=== PATIENT | female | born 2000 | race Caucasian/White ===

== ENCOUNTER → 2022-09-16 | Outpatient (CLI) | payer OTHER | LOC: M CARPUL 13:13 | PROVIDERS: ATTEND Internal Medicine Pulmonary Disease | DX: R06.02 Shortness of breath (principal) ==

== ENCOUNTER 2023-09-04 09:47 | Emergency (ER) | payer OTHER ==
[~2023-09-04] VITALS: Ht 154.9 cm; Wt 118.2 kg
[2023-09-04] MEDS ORDERED: ALBU8.5H (09:57)
[2023-09-04] MEDS ORDERED: SYMB16INH (09:57)
[2023-09-04 12:05] LABS: BASO # 0.1 10^3/uL (0.0-0.2); BASO % 0.5 % (0.0-1.0); EOS # 0.3 10^3/uL (0.0-0.5); EOS % 1.9 % (0.0-3.0); HEMATOCRIT 40.9 % (36.0-47.0); HEMOGLOBIN 14.3 g/dl (12.0-15.5); LYMPH # 2.5 10^3/uL (1.5-5.0); LYMPH % 19.3 % (24.0-44.0); MEAN CORPUSCULAR HEMOGLOBIN 34.1 pg (27.0-33.0); MEAN CORPUSCULAR VOLUME 97.6 fl (80.0-96.0); MONO # 0.6 10^3/uL (0.0-0.8); MONO % 4.7 % (2.0-8.0); NEUTROPHILS # 9.5 10^3/uL (1.5-8.5); NEUTROPHILS % 73.1 % (36.0-66.0); PLATELET COUNT, AUTOMATED 378 10^3/uL (150-450); RED BLOOD COUNT 4.19 10^6/uL (4.00-5.40); WHITE BLOOD COUNT 12.9 10^3/uL (4.0-10.0)
[2023-09-04 12:13] VITALS: TEMP 98.2
[2023-09-04] MEDS: IPRATROPIUM 0.5MG/ALBUTEROL 2.5MG INH SOL UD 3ML (DUONEB) NEB ONE (12:21)
[2023-09-04 12:33] LABS: BLOOD UREA NITROGEN 13 MG/DL (9-23); CALCIUM LEVEL 8.7 MG/DL (8.5-10.1); CARBON DIOXIDE LEVEL 27 MMOL/L (20-31); CHLORIDE LEVEL 107 MMOL/L (98-107); GLOMERULAR FILTRATION RATE > 60.0 (>60); GLUCOSE, FASTING 82 MG/DL (60-100); POTASSIUM SERUM 4.4 MMOL/L (3.5-5.1); SODIUM LEVEL 139 MMOL/L (136-145)
[2023-09-04] MEDS ORDERED: ISOVUE-370 76% 100ML VIAL As Ordered ONE (12:37)
[2023-09-04 13:35] VITALS: BP 128/89; O2SAT 99
== END 2023-09-04 13:37 | disposition home or self-care (01) ==
LOC: M ED 11:25
DX: R06.00 Dyspnea, unspecified (principal); R91.8 Other nonspecific abnormal finding of lung field; F17.200 Nicotine dependence, unspecified, uncomplicated; Z88.0 Allergy status to penicillin; Z88.1 Allergy status to other antibiotic agents
CPT/HCPCS: 71046; 71275; 80048; 83880; 84702; 85025; 87486; 87581; 87633; 87798; 94640; 99284; Q9967

== ENCOUNTER 2023-10-11 00:57 | Emergency (ER) | payer OTHER ==
[~2023-10-11] VITALS: Ht 147.3 cm; Wt 117.8 kg
[~2023-10-11 00:57] MED LIST: ALBU8.5H; SYMB16INH
[2023-10-11 01:06] VITALS: TEMP 98.1
[2023-10-11 04:56] LABS: BASO # 0.1 10^3/uL (0.0-0.2); BASO % 0.4 % (0.0-1.0); EOS # 0.4 10^3/uL (0.0-0.5); EOS % 2.6 % (0.0-3.0); HEMATOCRIT 40.6 % (36.0-47.0); HEMOGLOBIN 14.1 g/dl (12.0-15.5); LYMPH # 3.5 10^3/uL (1.5-5.0); LYMPH % 24.4 % (24.0-44.0); MEAN CORPUSCULAR HEMOGLOBIN 33.5 pg (27.0-33.0); MEAN CORPUSCULAR HGB CONC 34.7 g/dl (32.0-36.5); MEAN CORPUSCULAR VOLUME 96.4 fl (80.0-96.0); MONO # 0.6 10^3/uL (0.0-0.8); MONO % 4.1 % (2.0-8.0); NEUTROPHILS # 9.7 10^3/uL (1.5-8.5); PLATELET COUNT, AUTOMATED 409 10^3/uL (150-450); RED BLOOD COUNT 4.21 10^6/uL (4.00-5.40); WHITE BLOOD COUNT 14.3 10^3/uL (4.0-10.0)
[2023-10-11 05:24] LABS: ALBUMIN 3.5 G/DL (3.2-5.2); ALKALINE PHOSPHATASE 90 U/L (46-116); ALT/SGPT 18 U/L (7.0-40); AST/SGOT 15 U/L (<34); BILIRUBIN,DIRECT 0.2 MG/DL (<0.4); BILIRUBIN,TOTAL 0.6 MG/DL (0.3-1.2); BLOOD UREA NITROGEN 12 MG/DL (9-23); CALCIUM LEVEL 8.6 MG/DL (8.5-10.1); CARBON DIOXIDE LEVEL 26 MMOL/L (20-31); CHLORIDE LEVEL 104 MMOL/L (98-107); GLOMERULAR FILTRATION RATE > 60.0 (>60); GLUCOSE, FASTING 85 MG/DL (60-100); POTASSIUM SERUM 4.1 MMOL/L (3.5-5.1); SODIUM LEVEL 137 MMOL/L (136-145); TOTAL PROTEIN 6.6 G/DL (5.7-8.2)
[2023-10-11] MEDS: dexAMETHasone 20MG/5ML VIAL IV ONE (06:28)
[2023-10-11 06:50] VITALS: BP 137/66; O2SAT 98
== END 2023-10-11 07:05 | disposition home or self-care (01) ==
LOC: M ED 00:57 → EDBD 00:57 → M ED 07:05
DX: J45.909 Unspecified asthma, uncomplicated (principal); F17.200 Nicotine dependence, unspecified, uncomplicated; Z88.1 Allergy status to other antibiotic agents
CPT/HCPCS: 71046; 80048; 80076; 85025; 93005; 96374; 99284; J1100

== ENCOUNTER 2023-10-18 05:44 | Emergency (ER) | payer OTHER ==
[~2023-10-18] VITALS: Ht 147.3 cm; Wt 116.7 kg
[2023-10-18 08:50] LABS: BASO # 0.1 10^3/uL (0.0-0.2); BASO % 0.5 % (0.0-1.0); EOS # 0.3 10^3/uL (0.0-0.5); HEMATOCRIT 39.2 % (36.0-47.0); HEMOGLOBIN 13.6 g/dl (12.0-15.5); LYMPH # 3.5 10^3/uL (1.5-5.0); LYMPH % 21.6 % (24.0-44.0); MEAN CORPUSCULAR HEMOGLOBIN 33.2 pg (27.0-33.0); MEAN CORPUSCULAR HGB CONC 34.7 g/dl (32.0-36.5); MEAN CORPUSCULAR VOLUME 95.6 fl (80.0-96.0); MONO # 0.8 10^3/uL (0.0-0.8); MONO % 5.1 % (2.0-8.0); NEUTROPHILS # 11.4 10^3/uL (1.5-8.5); NEUTROPHILS % 70.2 % (36.0-66.0); PLATELET COUNT, AUTOMATED 359 10^3/uL (150-450); WHITE BLOOD COUNT 16.2 10^3/uL (4.0-10.0)
[2023-10-18 09:26] LABS: BLOOD UREA NITROGEN 8 MG/DL (9-23); CALCIUM LEVEL 8.7 MG/DL (8.5-10.1); CARBON DIOXIDE LEVEL 25 MMOL/L (20-31); CHLORIDE LEVEL 107 MMOL/L (98-107); CREATININE FOR GFR 0.66 MG/DL (0.55-1.30); GLOMERULAR FILTRATION RATE > 60.0 (>60); GLUCOSE, FASTING 80 MG/DL (60-100); POTASSIUM SERUM 3.6 MMOL/L (3.5-5.1); SODIUM LEVEL 139 MMOL/L (136-145)
[2023-10-18] MEDS ORDERED: ISOVUE-370 76% 100ML VIAL As Ordered ONE (10:33)
[2023-10-18 10:54] VITALS: BP 137/85; TEMP 99; O2SAT 100
[2023-10-18] MEDS ORDERED: MACR100C43 PO (11:27)
[2023-10-18] MEDS: NITROFURANTOIN (MACROBID) 100 MG CAP PO ONE (11:35)
== END 2023-10-18 11:41 | disposition home or self-care (01) ==
LOC: M ED 05:44 → EDBD 05:44 → M ED 11:41
DX: R06.02 Shortness of breath (principal); N39.0 Urinary tract infection, site not specified; D72.829 Elevated white blood cell count, unspecified; F17.210 Nicotine dependence, cigarettes, uncomplicated; Z88.1 Allergy status to other antibiotic agents; Z79.51 Long term (current) use of inhaled steroids; Z79.899 Other long term (current) drug therapy
CPT/HCPCS: 36415; 71046; 74177; 80048; 81001; 84702; 85025; 85379; 87086; 87426; 99284; Q9967

== ENCOUNTER 2023-10-24 23:27 | Emergency (ER) | payer OTHER ==
[~2023-10-24] VITALS: Ht 147.3 cm; Wt 124.0 kg
[~2023-10-24 23:27] MED LIST changes: +MACR100C43 PO
[2023-10-24 23:35] VITALS: BP 126/91; TEMP 97.2; O2SAT 100
[2023-10-25] MEDS: IBUPROFEN 600MG TAB PO ONE (01:13)
[2023-10-25] MEDS ORDERED: IBUP-1022 PO (01:16)
== END 2023-10-25 01:20 | disposition home or self-care (01) ==
LOC: M ED 23:27 → EDBD 23:27 → M ED 10-25 01:20
DX: S93.402A Sprain of unspecified ligament of left ankle, initial encounter (principal); X50.0XXA Overexertion from strenuous movement or load, initial encounter; Y92.009 Unspecified place in unspecified non-institutional (private) residence as the place of occurrence of the external cause; Y93.01 Activity, walking, marching and hiking; Y99.8 Other external cause status; J45.909 Unspecified asthma, uncomplicated; Z88.1 Allergy status to other antibiotic agents; Z88.0 Allergy status to penicillin; Z79.899 Other long term (current) drug therapy

== ENCOUNTER 2023-12-14 19:11 | Emergency (ER) | payer OTHER ==
[~2023-12-14] VITALS: Ht 144.8 cm; Wt 117.5 kg
[~2023-12-14 19:11] MED LIST changes: +IBUP-1022 PO
[2023-12-14 19:12] VITALS: BP 152/97; TEMP 98.2; O2SAT 98
== END 2023-12-14 23:12 | disposition left against medical advice (07) ==
LOC: M ED 19:11
DX: Z53.21 Procedure and treatment not carried out due to patient leaving prior to being seen by health care provider (principal)

== ENCOUNTER 2024-01-14 23:13 | Emergency (ER) | payer OTHER ==
[~2024-01-14] VITALS: Ht 147.3 cm; Wt 118.7 kg
[2024-01-14 23:14] VITALS: O2SAT 98
[2024-01-15 00:03] LABS: HCG, SERUM QUALITATIVE NEGATIVE (NEGATIVE)
[2024-01-15 00:10] LABS: HCG, SERUM QUANTITATIVE < 2.6 MIU/ML (<4.2)
[2024-01-15 00:12] LABS: ALBUMIN 3.4 G/DL (3.2-5.2); ALKALINE PHOSPHATASE 84 U/L (46-116); ALT/SGPT 18 U/L (7.0-40); AST/SGOT 18 U/L (<34); BILIRUBIN,TOTAL 0.4 MG/DL (0.3-1.2); BLOOD UREA NITROGEN 10 MG/DL (9-23); CALCIUM LEVEL 8.2 MG/DL (8.5-10.1); CARBON DIOXIDE LEVEL 24 MMOL/L (20-31); CHLORIDE LEVEL 108 MMOL/L (98-107); CREATININE FOR GFR 0.79 MG/DL (0.55-1.30); GLOMERULAR FILTRATION RATE > 60.0 (>60); GLUCOSE, FASTING 89 MG/DL (60-100); POTASSIUM SERUM 4.3 MMOL/L (3.5-5.1); SODIUM LEVEL 138 MMOL/L (136-145); TOTAL PROTEIN 6.8 G/DL (5.7-8.2)
[2024-01-15 00:16] LABS: BASO # 0.1 10^3/uL (0.0-0.2); BASO % 0.4 % (0.0-1.0); EOS # 0.3 10^3/uL (0.0-0.5); EOS % 2.2 % (0.0-3.0); HEMATOCRIT 39.2 % (36.0-47.0); HEMOGLOBIN 13.5 g/dl (12.0-15.5); LYMPH % 19.2 % (24.0-44.0); MEAN CORPUSCULAR HEMOGLOBIN 33.7 pg (27.0-33.0); MEAN CORPUSCULAR HGB CONC 34.4 g/dl (32.0-36.5); MEAN CORPUSCULAR VOLUME 97.8 fl (80.0-96.0); MONO # 0.8 10^3/uL (0.0-0.8); MONO % 5.1 % (2.0-8.0); NEUTROPHILS # 11.2 10^3/uL (1.5-8.5); NEUTROPHILS % 71.8 % (36.0-66.0); PLATELET COUNT, AUTOMATED 382 10^3/uL (150-450); RED BLOOD COUNT 4.01 10^6/uL (4.00-5.40); WHITE BLOOD COUNT 15.6 10^3/uL (4.0-10.0)
[2024-01-15] MEDS: ALBUTEROL 90 MCG/ACT 8GM HFA INHALER INH ONE (01:01)
[2024-01-15] MEDS: NITROFURANTOIN (MACROBID) 100 MG CAP PO ONE (01:20)
[2024-01-15] MEDS ORDERED: MACR100C43 PO (01:21)
[2024-01-15 01:57] VITALS: BP 128/88; TEMP 98.8
== END 2024-01-15 02:00 | disposition home or self-care (01) ==
LOC: M ED 23:13
DX: N39.0 Urinary tract infection, site not specified (principal); J06.9 Acute upper respiratory infection, unspecified; Z88.1 Allergy status to other antibiotic agents; Z79.52 Long term (current) use of systemic steroids; Z79.899 Other long term (current) drug therapy; Z79.2 Long term (current) use of antibiotics

== ENCOUNTER 2025-04-18 17:48 | Emergency (ER) | payer OTHER ==
[~2025-04-18] VITALS: Ht 144.8 cm; Wt 131.0 kg
[~2025-04-18 17:48] MED LIST changes: +ALB2.5NEB NEB; +BENZ-18; +BENZ200C70 PO; +BUDE10.2; +CEFD1CAP9; +CEFD300CAP PO; +CEPH500C PO; +CIPR250T26 PO; +CYCL5TAB4 PO; +GUAI1SOL7 PO; +HYDR-643 PO; -IBUP-1022 PO; +IBUP600T42 PO; +IPRA0.00; +LEVO1TAB40 PO; +LOPE-39 PO; +NAPR-837 PO; +NIFE-3 PO; +NITR100C3 PO; +OMEP40CA4 PO; +PANT40TA29 PO; +PRED10TA2 PO; +PRED20TA PO; +SERTRALINE; +SYMB80INH INH; +TRAZ-252; +TRAZ-252 PO; +VENTAER INH; +VITAMIN D 50000 UNIT PO; +ZOLO100T PO
[2025-04-18 18:19] LABS: BASO # 0.1 10^3/uL (0.0-0.2); BASO % 0.5 % (0.0-1.0); EOS # 0.2 10^3/uL (0.0-0.5); EOS % 1.5 % (0.0-3.0); LYMPH # 2.0 10^3/uL (1.5-5.0); LYMPH % 17.6 % (24.0-44.0); MONO # 0.5 10^3/uL (0.0-0.8); MONO % 4.4 % (2.0-8.0); NEUTROPHILS # 8.3 10^3/uL (1.5-8.5); NEUTROPHILS % 74.9 % (36.0-66.0); PLATELET COUNT, AUTOMATED 393 10^3/uL (150-450)
[2025-04-18 18:51] LABS: CK-MB VALUE MASS < 1.0 NG/ML (<3.6)
[2025-04-18 18:54] LABS: ALT/SGPT 132 U/L (7.0-40); AST/SGOT 231 U/L (<34); CALCIUM LEVEL 8.5 MG/DL (8.5-10.1); CARBON DIOXIDE LEVEL 24 MMOL/L (20-31); CHLORIDE LEVEL 109 MMOL/L (98-107); CREATININE FOR GFR 0.64 MG/DL (0.55-1.30); GLOMERULAR FILTRATION RATE > 90.0 (>60); POTASSIUM SERUM 4.1 MMOL/L (3.5-5.1); SODIUM LEVEL 141 MMOL/L (136-145)
[2025-04-18 19:08] LABS: CPK CREATINE PHOSPHOKINASE 55 U/L (34-145); HCG, SERUM QUANTITATIVE 1504.5 MIU/ML (<4.2)
[2025-04-18] MEDS: FAMOTIDINE 20 MG TAB PO ONE (22:02)
[2025-04-18 23:00] VITALS: TEMP 98.5
[2025-04-18] MEDS ORDERED: PRED20TA PO (23:23)
[2025-04-18 23:30] VITALS: BP 104/57; O2SAT 99
== END 2025-04-18 23:38 | disposition home or self-care (01) ==
LOC: MERGE 17:48 → M ED 17:48
DX: O99.891 Other specified diseases and conditions complicating pregnancy (principal); Z3A.01 Less than 8 weeks gestation of pregnancy; R07.89 Other chest pain; R06.00 Dyspnea, unspecified; J45.909 Unspecified asthma, uncomplicated; O99.511 Diseases of the respiratory system complicating pregnancy, first trimester; Z88.1 Allergy status to other antibiotic agents; Z79.51 Long term (current) use of inhaled steroids; Z79.52 Long term (current) use of systemic steroids; Z79.899 Other long term (current) drug therapy

== ENCOUNTER → 2025-04-20 | Outpatient (CLI) | payer OTHER ==
[2025-04-20 14:05] LABS: PLATELET COUNT, AUTOMATED 419 10^3/uL (150-450)
[2025-04-20 14:37] LABS: ALT/SGPT 78 U/L (7.0-40); AST/SGOT 28 U/L (<34); CALCIUM LEVEL 8.3 MG/DL (8.5-10.1); CARBON DIOXIDE LEVEL 23 MMOL/L (20-31); CHLORIDE LEVEL 106 MMOL/L (98-107); CREATININE FOR GFR 0.73 MG/DL (0.55-1.30); GLOMERULAR FILTRATION RATE > 90.0 (>60); POTASSIUM SERUM 4.1 MMOL/L (3.5-5.1); SODIUM LEVEL 140 MMOL/L (136-145)
[2025-04-20 14:55] LABS: HCG, SERUM QUANTITATIVE 2785.7 MIU/ML (<4.2)
== END ==
LOC: M PLALAB 09:50
PROVIDERS: ATTEND Specialist
DX: N92.6 Irregular menstruation, unspecified (principal)

== ENCOUNTER 2025-05-03 08:08 | Emergency (ER) | payer OTHER ==
[~2025-05-03] VITALS: Ht 144.8 cm; Wt 129.1 kg
[~2025-05-03 08:08] MED LIST changes: +ALBU8.5H INH
[2025-05-03] MEDS: NS (Normal Saline) 0.9% 1,000 ML IV ONE (10:17)
[2025-05-03] MEDS: ACETAMINOPHEN 500 MG TAB PO ONE (10:18)
[2025-05-03 10:25] LABS: BASO # 0.1 10^3/uL (0.0-0.2); BASO % 0.5 % (0.0-1.0); EOS # 0.2 10^3/uL (0.0-0.5); EOS % 1.2 % (0.0-3.0); LYMPH # 2.0 10^3/uL (1.5-5.0); LYMPH % 15.4 % (24.0-44.0); MONO # 0.7 10^3/uL (0.0-0.8); MONO % 5.1 % (2.0-8.0); NEUTROPHILS # 10.1 10^3/uL (1.5-8.5); NEUTROPHILS % 77.5 % (36.0-66.0); PLATELET COUNT, AUTOMATED 367 10^3/uL (150-450)
[2025-05-03 10:49] LABS: KETONE, URINE AUTO RFX NEGATIVE (NEGATIVE); MUCUS, URINE RFX SMALL (NEGATIVE); NITRITE, URINE AUTO RFX NEGATIVE (NEGATIVE); RBC, URINE AUTO RFX 2 /HPF (0-3); SQUAM EPITHELIAL CELL UR AURFX 4 /HPF (0-6)
[2025-05-03 10:51] LABS: LEUKOCYTE ESTERASE UR AUTO RFX 3+ (NEGATIVE); WBC, URINE AUTO RFX 17 /HPF (0-3)
[2025-05-03 10:53] LABS: CPK CREATINE PHOSPHOKINASE 49 U/L (34-145)
[2025-05-03 10:54] LABS: ALT/SGPT 23 U/L (7.0-40); AST/SGOT 18 U/L (<34); CALCIUM LEVEL 8.7 MG/DL (8.5-10.1); CARBON DIOXIDE LEVEL 23 MMOL/L (20-31); CHLORIDE LEVEL 104 MMOL/L (98-107); CK-MB VALUE MASS < 1.0 NG/ML (<3.6); CREATININE FOR GFR 0.64 MG/DL (0.55-1.30); GLOMERULAR FILTRATION RATE > 90.0 (>60); MAGNESIUM LEVEL 2.1 MG/DL (1.8-2.4); POTASSIUM SERUM 3.7 MMOL/L (3.5-5.1); SODIUM LEVEL 136 MMOL/L (136-145)
[2025-05-03 10:55] LABS: THYROXINE (T4) 11.1 UG/DL (4.5-10.9)
[2025-05-03 12:10] VITALS: TEMP 97.4
[2025-05-03] MEDS: CALCIUM CARBONATE 500 MG CHEW U/D PO ONE (12:15)
[2025-05-03] MEDS ORDERED: NITR100C3 PO (12:35)
[2025-05-03 13:20] VITALS: O2SAT 99
[2025-05-03] MEDS: IPRATROPIUM 0.5 MG/ALBUTEROL 2.5 MG INH SOL UD 3 ML NEB ONE (13:23)
[2025-05-03 13:37] VITALS: BP 114/57; O2SAT 98
== END 2025-05-03 13:38 | disposition home or self-care (01) ==
LOC: M ED 08:08
DX: O23.41 Unspecified infection of urinary tract in pregnancy, first trimester (principal); O99.511 Diseases of the respiratory system complicating pregnancy, first trimester; O10.011 Pre-existing essential hypertension complicating pregnancy, first trimester; Z3A.01 Less than 8 weeks gestation of pregnancy; N39.0 Urinary tract infection, site not specified; J45.901 Unspecified asthma with (acute) exacerbation; R55 Syncope and collapse; Z88.1 Allergy status to other antibiotic agents; Z79.51 Long term (current) use of inhaled steroids; Z79.899 Other long term (current) drug therapy

== ENCOUNTER 2025-05-07 14:07 | Emergency (ER) | payer OTHER ==
[~2025-05-07] VITALS: Ht 144.8 cm; Wt 127.5 kg
[2025-05-07] MEDS: FAMOTIDINE 20 MG TAB PO ONE (16:28)
[2025-05-07 17:33] VITALS: BP 125/60; TEMP 98; O2SAT 100
== END 2025-05-07 17:34 | disposition home or self-care (01) ==
LOC: M ED 14:07
DX: O99.511 Diseases of the respiratory system complicating pregnancy, first trimester (principal); R06.02 Shortness of breath; O99.351 Diseases of the nervous system complicating pregnancy, first trimester; G47.33 Obstructive sleep apnea (adult) (pediatric); Z3A.01 Less than 8 weeks gestation of pregnancy; Z79.899 Other long term (current) drug therapy; Z88.0 Allergy status to penicillin; Z88.8 Allergy status to other drugs, medicaments and biological substances

== ENCOUNTER 2025-05-11 19:03 | Emergency (ER) | payer OTHER ==
[~2025-05-11] VITALS: Ht 144.8 cm; Wt 124.5 kg
[2025-05-11 22:33] LABS: BASO # 0.0 10^3/uL (0.0-0.2); BASO % 0.3 % (0.0-1.0); EOS # 0.2 10^3/uL (0.0-0.5); EOS % 1.4 % (0.0-3.0); LYMPH # 1.0 10^3/uL (1.5-5.0); LYMPH % 7.3 % (24.0-44.0); MONO # 0.7 10^3/uL (0.0-0.8); MONO % 5.2 % (2.0-8.0); NEUTROPHILS # 11.4 10^3/uL (1.5-8.5); NEUTROPHILS % 85.2 % (36.0-66.0); PLATELET COUNT, AUTOMATED 344 10^3/uL (150-450)
[2025-05-11 22:59] LABS: ALT/SGPT 28 U/L (7.0-40); AST/SGOT 19 U/L (<34); CALCIUM LEVEL 9.2 MG/DL (8.5-10.1); CARBON DIOXIDE LEVEL 22 MMOL/L (20-31); CHLORIDE LEVEL 103 MMOL/L (98-107); CREATININE FOR GFR 0.65 MG/DL (0.55-1.30); GLOMERULAR FILTRATION RATE > 90.0 (>60); POTASSIUM SERUM 3.7 MMOL/L (3.5-5.1); SODIUM LEVEL 138 MMOL/L (136-145)
[2025-05-11] MEDS: NS (Normal Saline) 0.9% 1,000 ML IV ONE (23:27)
[2025-05-11] MEDS: IPRATROPIUM 0.5 MG/ALBUTEROL 2.5 MG INH SOL UD 3 ML NEB ONE (23:27)
[2025-05-11] MEDS: ONDANSETRON 4MG/2ML VIAL IV ONE (23:27)
[2025-05-12] MEDS ORDERED: PRED20TA PO (01:26)
[2025-05-12] MEDS ORDERED: ALBU2.5V10 NEB (01:26)
[2025-05-12] MEDS ORDERED: NEBU1EAC78 MC (01:26)
[2025-05-12] MEDS ORDERED: ONDA-282 PO (01:27)
[2025-05-12 01:58] VITALS: BP 124/81; TEMP 98.9; O2SAT 97
== END 2025-05-12 02:00 | disposition home or self-care (01) ==
LOC: M ED 19:03
DX: O99.511 Diseases of the respiratory system complicating pregnancy, first trimester (principal); J45.901 Unspecified asthma with (acute) exacerbation; J06.9 Acute upper respiratory infection, unspecified; Z3A.08 8 weeks gestation of pregnancy; O99.211 Obesity complicating pregnancy, first trimester; E66.9 Obesity, unspecified; O99.891 Other specified diseases and conditions complicating pregnancy; G47.33 Obstructive sleep apnea (adult) (pediatric); Z88.1 Allergy status to other antibiotic agents; Z79.899 Other long term (current) drug therapy; Z79.51 Long term (current) use of inhaled steroids
CPT/HCPCS: 80053; 84702; 85025; 87486; 87581; 87633; 87798; 96361; 96374; 99283; J2405

== ENCOUNTER 2025-05-23 16:53 | Emergency (ER) | payer OTHER ==
[~2025-05-23] VITALS: Ht 144.8 cm; Wt 121.4 kg
[~2025-05-23 16:53] MED LIST changes: +ALBU2.5V10 NEB; +NEBU1EAC78 MC; +ONDA-282 PO
[2025-05-23 20:49] LABS: BASO # 0.0 10^3/uL (0.0-0.2); BASO % 0.3 % (0.0-1.0); EOS # 0.1 10^3/uL (0.0-0.5); EOS % 0.9 % (0.0-3.0); LYMPH # 1.7 10^3/uL (1.5-5.0); LYMPH % 13.6 % (24.0-44.0); MONO # 0.8 10^3/uL (0.0-0.8); MONO % 6.6 % (2.0-8.0); NEUTROPHILS # 9.6 10^3/uL (1.5-8.5); NEUTROPHILS % 78.1 % (36.0-66.0); PLATELET COUNT, AUTOMATED 327 10^3/uL (150-450)
[2025-05-23] MEDS: NS (Normal Saline) 0.9% 1,000 ML IV ONE (21:10)
[2025-05-23] MEDS: FAMOTIDINE IV BAG 20 MG in IV 1 EA IV ONE (21:10)
[2025-05-23] MEDS: diphenhydrAMINE 50 MG/ML VIAL IV ONE (21:10)
[2025-05-23 21:12] LABS: ALT/SGPT 77 U/L (7.0-40); AST/SGOT 42 U/L (<34); CALCIUM LEVEL 9.5 MG/DL (8.5-10.1); CARBON DIOXIDE LEVEL 17 MMOL/L (20-31); CHLORIDE LEVEL 105 MMOL/L (98-107); CREATININE FOR GFR 0.52 MG/DL (0.55-1.30); GLOMERULAR FILTRATION RATE > 90.0 (>60); POTASSIUM SERUM 4.0 MMOL/L (3.5-5.1); SODIUM LEVEL 136 MMOL/L (136-145)
[2025-05-23 21:14] LABS: MONO SCRN NEGATIVE (NEGATIVE)
[2025-05-23 22:21] LABS: APPEARANCE, URINE HAZY (CLEAR); BACTERIA, URINE AUTO NEGATIVE (NEGATIVE); BILIRUBIN, URINE AUTO 2+ (NEGATIVE); BLOOD, URINE BLOOD NEGATIVE (NEGATIVE); GLUCOSE, URINE (UA) AUTO NEGATIVE (NEGATIVE); KETONE, URINE AUTO 2+ mg/dL (NEGATIVE); LEUKOCYTE ESTERASE, URINE AUTO 2+ (NEGATIVE); MUCUS, URINE SMALL (NEGATIVE); NITRITE, URINE AUTO NEGATIVE (NEGATIVE); PROTEIN, URINE AUTO 2+ mg/dL (NEGATIVE); RBC, URINE AUTO 7 /HPF (0-3); SPECIFIC GRAVITY URINE AUTO 1.027 (1.002-1.035); SQUAMOUS EPITHELIAL CELL UR AU 11 /HPF (0-6); UROBILINOGEN, URINE AUTO 4.0 mg/dL (0.0-2.0); WBC, URINE AUTO 142 /HPF (0-3)
[2025-05-24] MEDS ORDERED: SERT25TA85 PO (00:35)
[2025-05-24 00:59] VITALS: BP 113/57; TEMP 97.8; O2SAT 98
== END 2025-05-24 01:10 | disposition home or self-care (01) ==
LOC: M ED 16:53
DX: R09.A2 Foreign body sensation, throat (principal); F41.9 Anxiety disorder, unspecified; Z3A.09 9 weeks gestation of pregnancy; Z88.1 Allergy status to other antibiotic agents; Z79.51 Long term (current) use of inhaled steroids; Z79.899 Other long term (current) drug therapy
CPT/HCPCS: 80053; 81001; 85025; 86308; 87486; 87581; 87633; 87798; 87880; 96361; 96365; 99284; J1200; J1308

== ENCOUNTER 2025-05-30 17:48 | Emergency (ER) | payer OTHER ==
[~2025-05-30] VITALS: Ht 144.8 cm; Wt 121.4 kg
[~2025-05-30 17:48] MED LIST changes: +SERT25TA85 PO
[2025-05-30 20:40] VITALS: BP 119/87; TEMP 97.4; O2SAT 100
== END 2025-05-30 20:46 | disposition home or self-care (01) ==
LOC: M ED 19:34
DX: R09.A2 Foreign body sensation, throat (principal); Z88.1 Allergy status to other antibiotic agents

== ENCOUNTER → 2025-06-08 | Outpatient (CLI) | payer OTHER ==
[~2025-06-08] MED LIST changes: +ALBU2.5V10 INH; +LABE100T91 PO; +REGL10TA6 PO
== END ==
LOC: M PLALAB 11:26
PROVIDERS: ATTEND Specialist
DX: Z34.80 Encounter for supervision of other normal pregnancy, unspecified trimester (principal)